=== PATIENT | female | born 1950 | race Caucasian/White ===

== ENCOUNTER → 2022-12-14 09:48 | Outpatient (CLI) | payer MEDICARE, SELFPAY ==
--- NOTE | ~2022-12-14 | MR_ITS ---
EXAMINATION: MR shoulder RT wo con DATE: 12/14/2022 10:44 INDICATION: Acute onset right shoulder pain TECHNIQUE: Magnetic resonance imaging (MRI) of the right shoulder was performed without intravenous c ontrast. Sequences included axial PD-weighted FS FSE, coronal oblique PD-weighted FS FSE, coronal obl ique T2-weighted FS FSE, sagittal PD-weighted FS FSE, and sagittal T1-weighted SE. COMPARISON: None. FINDINGS: Coracoacromial arch: The acromion undersurface is minimally curved in morphology (type I-II). Small subacromial spur at th e acromial insertion of the normal coracoacromial ligament. Moderate acromioclavicular osteoarthritis . Rotator cuff: Moderate supraspinatus tendinopathy with mild bursal sided fraying without discrete measurable tear d efect along the distal most tendon. Mild infraspinatus and subscapularis tendinopathy. The teres stefan r tendon is normal. Normal rotator cuff muscle bulk and signal. Biceps tendon, glenoid labrum and glenohumeral cartilage: Long head of the biceps tendon is normal. There is a second accessory head of the long head biceps te ndon which inserts onto the distal anterior margin of the supraspinatus tendon. Mild glenohumeral ost eoarthritis with mild nonuniform partial-thickness cartilage loss and chondral surface irregularity a long the posterior superior glenoid and along the inferomedial aspect of the humeral head. The glenoi d labrum is normal. Fluid: Physiologic amount of fluid in the glenohumeral joint and biceps tendon sheath. No loose osteochondr al bodies. Small to moderate amount of fluid in the subacromial/subdeltoid bursa which could be eithe r reactive or related to bursitis. Bones: Prominent bone marrow edema surrounding a irregular linear low signal intensity nondisplaced fracture line involving the superior and middle facets of the greater tuberosity. Alignment remains essential ly anatomic. No other fractures identified. Mild cystic and hypertrophic change at the lesser tuberos ity. Additional mild cystic change along the lateral wall of the intertubercular groove. IMPRESSION: 1. Nondisplaced fracture involving the superior and middle facets of the greater tuberosity. 2. Moderate supraspinatus tendinopathy with bursal sided fraying of the distal tendon without a measu rable tear defect. 3. Mild glenohumeral and moderate acromioclavicular osteoarthritis. 4. [id number] amount fluid in the subacromial/subdeltoid bursa which is most likely reactive r elated to the greater tuberosity fracture with differential including bursitis. Reviewed, dictated and finalized at location A. T SUPERINTENDENT IMPRESSION: 1. Nondisplaced fracture involving the superior and middle facets of the greate r tuberosity. 2. Moderate supraspinatus tendinopathy with bursal sided fraying of the distal tendon without a measurable tear defect. 3. Mild glenohumeral and moderate acromioclavicular osteoarthritis. 4. [id number] amount fluid in the subacromial/subdeltoid bursa which is most likely reactive related to the greater tuberosity fracture with differenti al including bursitis.
== END ==
PROVIDERS: Visit Provider Orthopaedic Surgery
DX: S42.254 Nondisplaced fracture of greater tuberosity of right humerus (principal); M75.81 Other shoulder lesions, right shoulder; M25.411 Effusion, right shoulder; X58.XXXA Exposure to other specified factors, initial encounter
CPT/HCPCS: 73221